=== PATIENT | male | born 1940 | race African-American/Black ===

== ENCOUNTER 2017-02-06 22:14 | Inpatient (IN) | payer OTHER ==
[~2017-02-06] VITALS: Ht 182.9 cm; Wt 66.8 kg
[2017-02-07 00:21] LABS: CALCIUM 8.2 mg/dL (8.5-10.1); CARBON DIOXIDE 24.5 mmol/L (21-32); CHLORIDE SERUM 107 mmol/L (98-107); CREATININE SERUM 1.7 mg/dL (0.7-1.3); GLUCOSE SERUM 130 mg/dL (74-106); POTASSIUM SERUM 4.5 mmol/L (3.5-5.1); SODIUM SERUM 142 mmol/L (136-145)
[2017-02-07 00:22] LABS: BASOPHIL % 0.1 % (0-2); PLATELET COUNT 279 x10^3mcL (130-400)
[2017-02-07] MEDS ORDERED: LOSARTAN POTASS1 TA8 PO (00:26)
[2017-02-07] MEDS ORDERED: NOR10 PO (00:26)
[2017-02-07] MEDS ORDERED: TAMSULOSIN HYD0.4 M1 PO (00:26)
[2017-02-07] MEDS ORDERED: CARVEDILOL25 M1 PO (00:26)
[2017-02-07] MEDS ORDERED: XARELTO10 M1 PO (00:27)
[2017-02-07 00:35] LABS: T3 TOTAL 0.95 ng/mL
[2017-02-07 00:40] LABS: ALKALINE PHOSPHATASE 62 U/L (46-116); ALT/SGPT 21 U/L (16-63); AST/SGOT 15 U/L (15-37); BILIRUBIN TOTAL 0.5 mg/dL (0.20-1.00)
[2017-02-07 00:41] LABS: ALBUMIN 3.1 g/dL (3.4-5.0); C REACTIVE PROTEIN < 0.2 mg/dL (<=0.9)
[2017-02-07 00:45] LABS: FREE T4 0.86 ng/dL (0.76-1.46); FREE THYROXINE INDEX 2.7 ug/dL (1.4-4.5); T4(THYROXINE) 7.7 ug/dL (4.7-13.3)
[2017-02-07 00:48] LABS: CK-MB 0.7 ng/mL (0-3.6)
[2017-02-07 00:54] LABS: rbc morphology (normal/abnorm) ABNORMAL (NORMAL)
[2017-02-07 01:54] LABS: ERYTHROCYTE SED RATE 46 mm/hr (0-20)
[2017-02-07 01:58] VITALS: BP 102/57
[2017-02-07 01:59] LABS: UA SPECIFIC GRAVITY 1.015 (1.005-1.035); microscopic required? YES; urine erythrocyte NEGATIVE (NEGATIVE)
[2017-02-07 05:43] VITALS: BP 112/77
[2017-02-07 09:50] VITALS: BP 106/64
[2017-02-07 10:05] LABS: CALCIUM 7.9 mg/dL (8.5-10.1); CARBON DIOXIDE 27.1 mmol/L (21-32); CHLORIDE SERUM 107 mmol/L (98-107); CREATININE SERUM 1.2 mg/dL (0.7-1.3); GLUCOSE SERUM 105 mg/dL (74-106); MAGNESIUM 1.9 mg/dL (1.8-2.4); PHOSPHOROUS 4.8 mg/dL (2.5-4.9); POTASSIUM SERUM 3.8 mmol/L (3.5-5.1); SODIUM SERUM 140 mmol/L (136-145)
[2017-02-07 10:57] LABS: BASOPHIL % 0.4 % (0-2); PLATELET COUNT 223 x10^3mcL (130-400)
[2017-02-07 10:58] LABS: RED CELL DISTRIBUTION WIDTH 18.6 % (11.5-14.5)
[2017-02-07 14:30] VITALS: BP 117/75
[2017-02-07 18:05] VITALS: BP 107/76
[2017-02-07 21:42] VITALS: BP 148/86
[2017-02-08 05:56] VITALS: BP 106/70
[2017-02-08 06:31] LABS: CALCIUM 7.6 mg/dL (8.5-10.1); CHLORIDE SERUM 113 mmol/L (98-107); GLUCOSE SERUM 88 mg/dL (74-106); MAGNESIUM 1.9 mg/dL (1.8-2.4); PHOSPHOROUS 2.7 mg/dL (2.5-4.9); POTASSIUM SERUM 3.8 mmol/L (3.5-5.1); SODIUM SERUM 148 mmol/L (136-145)
[2017-02-08 07:18] LABS: BASOPHIL % 0.4 % (0-2)
[2017-02-08 07:20] LABS: PLATELET COUNT 238 x10^3mcL (130-400)
[2017-02-08 09:30] VITALS: BP 110/60
[2017-02-08 11:49] LABS: rbc morphology (normal/abnorm) ABNORMAL (NORMAL)
[2017-02-08 13:23] VITALS: BP 103/65
[2017-02-08 17:03] VITALS: BP 93/50
[2017-02-08 22:17] VITALS: BP 103/66
[2017-02-09 06:11] LABS: BASOPHIL % 0.4 % (0-2); PLATELET COUNT 227 x10^3mcL (130-400)
[2017-02-09 06:30] VITALS: BP 101/65
[2017-02-09 06:51] LABS: RED CELL DISTRIBUTION WIDTH 18.4 % (11.5-14.5)
[2017-02-09 06:56] LABS: CALCIUM 7.8 mg/dL (8.5-10.1); CARBON DIOXIDE 27.9 mmol/L (21-32); CHLORIDE SERUM 110 mmol/L (98-107); GLUCOSE SERUM 94 mg/dL (74-106); MAGNESIUM 1.9 mg/dL (1.8-2.4); PHOSPHOROUS 3.2 mg/dL (2.5-4.9); POTASSIUM SERUM 3.9 mmol/L (3.5-5.1); SODIUM SERUM 144 mmol/L (136-145)
[2017-02-09 10:24] VITALS: BP 96/58
[2017-02-09 13:34] VITALS: BP 96/58
[2017-02-09] MEDS ORDERED: FER300 PO (14:49)
== END 2017-02-09 16:14 | disposition home or self-care (01) | DRG 377 ==
LOC: ED 22:14 → DU 02-07 01:13 → MU 02-09 07:03
PROVIDERS: Family Medicine; Internal Medicine Gastroenterology; Specialist; ADMIT Family Medicine
PROC: 30233N1 Transfusion of Nonautologous Red Blood Cells into Peripheral Vein, Percutaneous Approach (ICD-10-PCS; 2017-02-07)
PROC: 0DJ08ZZ Inspection of Upper Intestinal Tract, Via Natural or Artificial Opening Endoscopic (ICD-10-PCS; principal; 2017-02-07 09:30)
PROC: 0DBN8ZZ Excision of Sigmoid Colon, Via Natural or Artificial Opening Endoscopic (ICD-10-PCS; 2017-02-08 08:00)
DX: K29.01 Acute gastritis with bleeding (principal); N17.0 Acute kidney failure with tubular necrosis; D62 Acute posthemorrhagic anemia; E44.0 Moderate protein-calorie malnutrition; E87.2 Acidosis; K31.819 Angiodysplasia of stomach and duodenum without bleeding; K44.9 Diaphragmatic hernia without obstruction or gangrene; D12.5 Benign neoplasm of sigmoid colon; K57.30 Diverticulosis of large intestine without perforation or abscess without bleeding; K64.8 Other hemorrhoids; I10 Essential (primary) hypertension; N40.0 Benign prostatic hyperplasia without lower urinary tract symptoms; I48.91 Unspecified atrial fibrillation; Z95.0 Presence of cardiac pacemaker; Z68.20 Body mass index [BMI] 20.0-20.9, adult; Z79.01 Long term (current) use of anticoagulants; F17.210 Nicotine dependence, cigarettes, uncomplicated
CPT/HCPCS: 43235; 45378; 83880; 84439; C9113; J0690; J0696; J1200; J1610; J2250; J2310; J2916; J3010; J3490; J7030; J7040; J7042; P9016; Q0163